=== PATIENT | female | born 1995 | race Two or more races ===

== ENCOUNTER → 2018-05-31 | Outpatient (CLI) | payer MEDICAID ==
--- NOTE | 2018-05-31 16:16 | RAD ---
EXAM: Obstetrics sonogram. HISTORY: anatomy survey. TECHNIQUE: Sonographic imaging of a gravid uterus was performed. COMPARISON: None. FINDINGS: There is a single intrauterine fetus in breech presentation with a heart rate of 158 bpm. the cervix measures 3.4 cm in length and is closed. There is a three-vessel umbilical cord with normal insertion. There is body motion. There is a four-chamber heart. The stomach, kidneys, bladder, spine, brain, facial profile and extremities are unremarkable. There is a grade 1 anterolisthesis and without evidence of placenta previa. The biparietal diameter is 4.01 cm, corresponding with 18 weeks and 1 day and the 59th percentile. The head circumference is 15.37 cm, corresponding with 18 weeks and 2 days and the 60th percentile. The abdominal circumference is 12.90 cm, corresponding with 18 weeks and 3 days and the 63rd percentile. The femoral length is 2.77 cm, corresponding with 18 weeks and 3 days and the 63rd percentile. The estimated gestational age based on combined ultrasound measurements is 18 weeks and 2 days. The estimated weight is 240 g. The estimated due date is 10/30/2018. IMPRESSION: 1. Single intrauterine fetus with an estimated gestational age based on ultrasound measurements of 18 weeks and 2 days and heart rate of 158 bpm. 2. Unremarkable anatomy survey. Electronically signed by: Rosa Guido MD (05/31/2018 4:13 PM) [id number]
== END | disposition home or self-care (01) ==
LOC: US 15:08
PROVIDERS: ATTEND Advanced Practice Midwife
DX: Z34.82 Encounter for supervision of other normal pregnancy, second trimester (principal); Z3A.18 18 weeks gestation of pregnancy
CPT/HCPCS: 76805